=== PATIENT | female | born 1995 | race Caucasian/White ===

== ENCOUNTER 2017-02-15 00:54 | Emergency (ER) | payer OTHER, SELFPAY ==
[2017-02-15] MEDS ORDERED: Ondansetron 4 MG/2 ML SDV IVPUSH ONE (01:24)
[2017-02-15] MEDS ORDERED: Sodium Chloride 0.9% 1,000 ML IV SCH ×2 (01:30→05:00)
[2017-02-15] MEDS ORDERED: Ketorolac 30 MG/ML SDV IVPUSH ONE (02:02)
[2017-02-15] MEDS ORDERED: Iopamidol 755 Mg/ML 100 ML Bottle IV ONE (02:42)
[2017-02-15 04:06] VITALS: BP 129/83
[2017-02-15] MEDS ORDERED: HYDROmorphone 2 MG/ML SDV IVPUSH ONE (04:28)
--- NOTE | 2017-02-15 05:10 | EDM.PDOC ---
ED HPI GI/ABDOMINAL - General Chief Complaint: Abdominal Pain Stated Complaint: CRAMP,VOMIT Time Seen by Provider: 02/15/17 01:00 Source: Reports: Patient History Limitations: Reports: No limitations - History of Present Illness INITIAL COMMENTS - FREE TEXT/NARRATIVE: Patient is a 21 year old woman who has had 1 and 1/2 days of worsening abdominal pain and bloating. At first 1.5 days ago the pain would wax and wane but today it has worsened to the point of 9-10/10 in intensity. She has not had a bowel movement in the last 1.5 days and she also has had a lot of emesis this evening. No fever or chills but the abdominal pain is worsening. 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: Other (see below) (No treatments prior to arrival at ED.) - Related Data Allergies/ADRs: Allergies Allergy/AdvReac Type Severity Reaction Status Date / Time hydrocodone Allergy Tachycardia Verified 02/15/17 02:00 Home Meds: Home Meds NK [No Known Home Meds] 02/15/17 [History] Past Medical History Dermatologic History: Reports: Eczema - Past Surgical History HEENT Surgical History: Reports: Oral surgery Social & Family History - Tobacco Use Smoking Status *Q: Never Smoker - Recreational Drug Use Recreational Drug Use: No ED ROS GENERAL - Review of Systems Review Of Systems: See Below Constitutional: Reports: decreased appetite Respiratory: Reports: No Symptoms GI/Abdominal: Reports: Abdominal pain, Constipation, Distension, Nausea, Vomiting : Reports: no symptoms Musculoskeletal: Reports: no symptoms Skin: Reports: no symptoms Neurological: Reports: No Symptoms Hematologic/Lymphatic: Reports: no symptoms ED EXAM, GI/ABD - Physical Exam Exam: See Below Exam Limited By: No limitations General Appearance: alert, severe distress Eyes: bilateral: normal appearance, EOMI Ears: normal external exam, normal canal, hearing grossly normal, normal TMs Nose: normal inspection, normal mucosa, no blood Throat/Mouth: Normal inspection, Normal lips, Normal teeth, Normal gums, Normal oropharynx, Normal voice, No airway compromise Head: atraumatic, normocephalic Neck: normal inspection, supple, non-tender, full range of motion Respiratory/Chest: no respiratory distress, lungs clear, normal breath sounds, no accessory muscle use, chest non-tender Cardiovascular: normal peripheral pulses, regular rate, rhythm, no edema, no gallop, no JVD, no murmur, no rub GI/Abdominal: normal bowel sounds, tenderness, distention, guarding (Diffusely in the whole abdomen.), rebound (with percussion in RLQ and LLQ), psoas sign ( RLQ) Back Exam: normal inspection, full range of motion, NT Extremities: normal inspection, normal range of motion, non-tender, no pedal edema Neurological: alert, oriented, CN II-XII intact, normal cognition, normal gait, normal reflexes, no motor/sensory deficits Psychiatric: normal affect, normal mood Skin Exam: Warm, Dry, Intact, Normal color, No rash Lymphatic: no adenopathy Course - Vital Signs Text/Narrative:: Patient had an uneventful ED course. She was given IV Toradol along with Zofran IV after initial evaluation and before CT abdomen since she had an allergy to Hydrocodone that caused tachycardia in the past. On consultation with Dr. Holder in general surgery, Dilaudid was given with great relief of her pain down to a 1/[address] Holder suggested transfer to [facility] for GI consultation and evaluation due to her colitis. Last Recorded V/S: Last Vital Signs Temp 36.7 C 02/15/17 03:45 Pulse 89 02/15/17 03:45 Resp 16 02/15/17 03:45 BP 129/83 02/15/17 03:45 Pulse Ox 98 02/15/17 03:45 - Orders/Labs/Meds Orders: Active Orders 24 hr Category Date Time Status Abdomen Pelvis w Cont [CT] Stat Exams 02/15/17 01:23 Taken UA W/MICROSCOPIC [URIN] Stat Lab 02/15/17 01:22 Uncollected Sodium Chloride 0.9% [Normal Saline] 1,000 ml Med 02/15/17 01:30 Active IV ASDIRECTED Sodium Chloride 0.9% [Normal Saline] 1,000 ml Med 02/15/17 05:00 Active IV ASDIRECTED Medication Orders Sodium Chloride (Normal Saline) 1,000 mls @ 999 mls/hr IV ASDIRECTED MARCEL Last Admin: 02/15/17 01:50 Dose: 999 mls/hr Sodium Chloride (Normal Saline) 1,000 mls @ 150 mls/hr IV ASDIRECTED MARCEL Last Admin: 02/15/17 04:53 Dose: 150 mls/hr Labs: Laboratory Tests 02/15/17 02/15/17 02/15/17 Range/Units 01:45 01:45 01:45 WBC 14.1 H (4.5-12.0) X10-3/uL RBC 4.65 (3.23-5.20) x10(6)uL Hgb 12.2 (11.5-15.5) g/dL Hct 36.4 (30.0-51.3) % MCV 78.3 L (80-96) fL MCH 26.1 L (27.7-33.6) pg MCHC 33.4 (32.2-35.4) g/dL RDW 12.9 (11.5-15.5) % Plt Count 419 H (125-369) X10(3)uL MPV 8.1 (7.4-10.4) fL Neut % (Auto) 72.2 (46-82) % Lymph % (Auto) 20.7 (13-37) % [place] % (Auto) 4.4 (4-12) % Eos % (Auto) 2 (1.0-5.0) % Baso % (Auto) 0 (0-2) % Neut # (Auto) 10.2 H (1.6-8.3) # Lymph # (Auto) 2.9 (0.6-5.0) # Marathon # (Auto) 0.6 (0.0-1.3) # Eos # (Auto) 0.3 (0.0-0.8) # Baso # (Auto) 0.1 (0.0-0.2) # Sodium 138 (135-145) mmol/L Potassium 3.4 L (3.5-5.3) mmol/L Chloride 105 (100-110) mmol/L Carbon Dioxide 20 L (23-29) mmol/L BUN 17 (5-20) mg/dL Creatinine 0.8 (0.6-1.3) mg/dL Est Cr Clr Drug Dosing TNP Estimated GFR (MDRD) > 60 (>60) BUN/Creatinine Ratio 21.3 H (9-20) Glucose 140 H (80-116) mg/dL Calcium 9.4 (8.6-10.2) mg/dL Total Bilirubin 0.5 (0.1-1.3) mg/dL AST 20 (5-27) IU/L ALT 15 (14-26) IU/L Alkaline Phosphatase 82 (56-112) IU/L Total Protein 7.8 (6.0-8.0) g/dL Albumin 4.1 (3.5-5.2) g/dL Globulin 3.7 g/dL Albumin/Globulin Ratio 1.1 HCG, Quant < 2 L (2.0 - ) mIU/mL Meds: Medications Generic Name Dose Route Start Last Admin Trade Name Freq PRN Reason Stop Dose Admin Sodium Chloride 1,000 mls @ 999 mls/hr 02/15/17 01:30 02/15/17 01:50 Normal Saline IV 999 mls/hr ASDIRECTED MARCEL Administration Sodium Chloride 1,000 mls @ 150 mls/hr 02/15/17 05:00 02/15/17 04:53 Normal Saline IV 150 mls/hr ASDIRECTED MARCEL Administration Discontinued Medications Generic Name Dose Route Start Last Admin Trade Name Freq PRN Reason Stop Dose Admin Hydromorphone HCl 1 mg 02/15/17 04:28 02/15/17 04:52 Dilaudid IVPUSH 02/15/17 04:29 1 mg ONETIME ONE Administration Iopamidol 83 ml 02/15/17 02:42 02/15/17 02:55 Isovue-370 (76%) IV 02/15/17 02:43 83 ml . DIRECTED ONE Administration Ketorolac Tromethamine 30 mg 02/15/17 02:02 02/15/17 02:05 Toradol IVPUSH 02/15/17 02:03 30 mg ONETIME ONE Administration Ondansetron HCl 4 mg 02/15/17 01:24 02/15/17 01:50 Zofran IVPUSH 02/15/17 01:25 4 mg ONETIME ONE Administration Departure - Departure Time of Disposition: 05:15 Disposition: DC/Tfer to Acute Hospital 02 Condition: good Clinical Impression: Colitis, acute Abdominal pain Qualifiers: Abdominal location: generalized Qualified Code(s): R10.84 - Generalized abdominal pain Instructions: Abdominal Pain, Adult, [id number] Referrals: PCP,None [Primary Care Provider] - Forms: ED Department Discharge - My Orders Last 24 Hours: My Active Orders 02/15/17 01:22 UA W/MICROSCOPIC [URIN] Stat 02/15/17 01:23 Abdomen Pelvis w Cont [CT] Stat 02/15/17 01:30 Sodium Chloride 0.9% [Normal Saline] 1,000 ml IV ASDIRECTED 02/15/17 05:00 Sodium Chloride 0.9% [Normal Saline] 1,000 ml IV ASDIRECTED - Assessment/Plan Last 24 Hours: My Active Orders 02/15/17 01:22 UA W/MICROSCOPIC [URIN] Stat 02/15/17 01:23 Abdomen Pelvis w Cont [CT] Stat 02/15/17 01:30 Sodium Chloride 0.9% [Normal Saline] 1,000 ml IV ASDIRECTED 02/15/17 05:00 Sodium Chloride 0.9% [Normal Saline] 1,000 ml IV ASDIRECTED
== END 2017-02-15 05:15 ==
LOC: FB.ED 00:54
DX: K52.9 Noninfective gastroenteritis and colitis, unspecified (principal); Z88.5 Allergy status to narcotic agent; Z98.890 Other specified postprocedural states
CPT/HCPCS: 36415; 74177; 80053; 84702; 85025; 96361; 96374; 96375; 99285; J1170; J1885; J2405; J7040; Q9967

== ENCOUNTER 2017-10-31 13:39 | Emergency (ER) | payer BC, MEDICAID ==
[2017-10-31] MEDS ORDERED: Lactated Ringers 1,000 ML IV ONE (14:10)
[2017-10-31] MEDS ORDERED: HYDROmorphone 2 MG/ML SDV IVPUSH ONE ×4 (14:11→17:15)
[2017-10-31] MEDS ORDERED: Metoclopramide 10 MG/2 ML SDV IVPUSH ONE (14:11)
--- NOTE | 2017-10-31 14:17 | EDM.PDOC ---
ED [facility] GENERAL MEDICAL PROBLEM - General Chief Complaint: Abdominal Pain Stated Complaint: STOMACH PAIN Time Seen by Provider: 10/31/17 14:05 Source of Information: Reports: Patient, Family, Old Records, RN History Limitations: Reports: No Limitations - History of Present Illness INITIAL COMMENTS - FREE TEXT/NARRATIVE: 22 yo female with a recent colostomy reversal place for colon CA presents with her mother for nausea, vomiting, and abdominal pain. No change in bowels. No fever. Is on Dilaudid for pain chronically. No bleeding. Was to [place] for follow up as recent as last week. Does not feel bloated. Onset: Gradual Onset Date: 10/30/17 Duration: Hour(s):, Constant Location: Reports: Abdomen Quality: Reports: Ache Severity: Moderate Improves with: Reports: None Worsens with: Reports: Other (? time) Context: Reports: Other (abdominal surgeries as in HPI) Associated Symptoms: Reports: Loss of Appetite, Nausea/Vomiting. 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: Reports: None Musculoskeletal History: Reports: None Neurological History: Reports: None Endocrine/Metabolic History: Reports: None Hematologic History: Reports: Blood Transfusion(s) Oncologic (Cancer) History: Reports: Colon Dermatologic History: Reports: Eczema - Past Surgical History HEENT Surgical History: Reports: Oral Surgery Cardiovascular Surgical History: Reports: None Respiratory Surgical History: Reports: Tracheostomy GI Surgical History: Reports: Appendectomy, Colon, Colonoscopy, Other (See Below ) Other GI Surgeries/Procedures: ilieostomy Endocrine Surgical History: Reports: None Musculoskeletal Surgical History: Reports: None Social & Family History - Tobacco Use Smoking Status *Q: Never Smoker - Recreational Drug Use Recreational Drug Use: No ED ROS GENERAL - Review of Systems Review Of Systems: See Below Constitutional: Reports: No Symptoms HEENT: Reports: No Symptoms Respiratory: Reports: No Symptoms Cardiovascular: Reports: No Symptoms Endocrine: Reports: No Symptoms GI/Abdominal: Reports: Abdominal Pain, Decreased Appetite, Nausea, Vomiting. Denies: Black Stool, Bloody Stool, Constipation, Diarrhea, Distension, Flatus, Hematemesis, Hematochezia, Melena : Reports: No Symptoms Musculoskeletal: Reports: No Symptoms Skin: Reports: No Symptoms Neurological: Reports: No Symptoms ED EXAM, GI/ABD - Physical Exam Exam: See Below Exam Limited By: No Limitations General Appearance: Alert, WD/WN, Mild Distress Eyes: Bilateral: Normal Appearance, EOMI Ears: Normal External Exam, Normal Canal, Hearing Grossly Normal, Normal TMs Nose: Normal Inspection, Normal Mucosa, No Blood Throat/Mouth: Normal Inspection, Normal Lips, Normal Oropharynx, Normal Voice, No Airway Compromise Head: Atraumatic, Normocephalic Neck: Normal Inspection, Supple Respiratory/Chest: No Respiratory Distress, Lungs Clear, Normal Breath Sounds, No Accessory Muscle Use Cardiovascular: Regular Rate, Rhythm, No Edema GI/Abdominal Exam: Normal Bowel Sounds, Soft, No Distention, Tender (low abdomen with many surgical scars, old and newer.). No: Rebound Back Exam: Normal Inspection. No: CVA Tenderness (R), Paraspinal Tenderness Extremities: Normal Inspection, Normal Range of Motion, Non-Tender, No Pedal Edema Neurological: Alert, Oriented, CN II-XII Intact, Normal Cognition, No Motor/ Sensory Deficits Psychiatric: Normal Affect, Normal Mood Skin Exam: Warm, Dry, Intact, Normal Color, No Rash Lymphatic: No Adenopathy Course - Vital Signs Text/Narrative:: LR 1000 ml IV, Zofran 4 mg IV, Dilaudid 1 mg IV x 2 + 2 mg IV, 2 mg IV + 1 mg IV Last Recorded V/S: Last Vital Signs Temp 36.6 C 10/31/17 15:45 Pulse 61 10/31/17 13:49 Resp 18 10/31/17 15:45 BP 101/60 10/31/17 15:45 Pulse Ox 99 10/31/17 15:45 - Orders/Labs/Meds Orders: Active Orders 24 hr Category Date Time Status Abdomen Pelvis w Cont [CT] Stat Exams 10/31/17 14:18 Taken Lactated Ringers [Ringers, Lactated] 1,000 ml Med 10/31/17 15:45 Active IV ASDIRECTED Medication Orders Lactated Ringer's (Ringers, Lactated) 1,000 mls @ 200 mls/hr IV ASDIRECTED MARCEL Labs: Laboratory Tests 10/31/17 10/31/17 Range/Units 14:40 14:40 WBC 9.2 (4.5-12.0) X10-3/uL RBC 4.22 (3.23-5.20) x10(6)uL Hgb 11.6 (11.5-15.5) g/dL Hct 35.4 (30.0-51.3) % MCV 83.7 (80-96) fL MCH 27.6 L (27.7-33.6) pg MCHC 32.9 (32.2-35.4) g/dL RDW 12.3 (11.5-15.5) % Plt Count 384 H (125-369) X10(3)uL Sodium 142 (135-145) mmol/L Potassium 4.0 (3.5-5.3) mmol/L Chloride 106 (100-110) mmol/L Carbon Dioxide 26 (21-32) mmol/L BUN 13 (7-18) mg/dL Creatinine 0.7 (0.55-1.02) mg/dL Est Cr Clr Drug Dosing TNP Estimated GFR (MDRD) > 60 (>60) BUN/Creatinine Ratio 18.6 (9-20) Glucose 102 (80-116) mg/dL Calcium 9.5 (8.6-10.2) mg/dL Total Bilirubin 0.4 (0.1-1.3) mg/dL AST 12 (5-25) IU/L ALT 15 (12-36) U/L Alkaline Phosphatase 84 (56-112) IU/L Total Protein 7.0 (6.0-8.0) g/dL Albumin 3.2 L (3.5-5.2) g/dL Globulin 3.8 g/dL Albumin/Globulin Ratio 0.8 Amylase 25 (25-115) U/L Meds: Medications Generic Name Dose Route Start Last Admin Trade Name Freq PRN Reason Stop Dose Admin Lactated Ringer's 1,000 mls @ 200 mls/hr 10/31/17 15:45 Ringers, Lactated IV ASDIRECTED MARCEL Discontinued Medications Generic Name Dose Route Start Last Admin Trade Name Freq PRN Reason Stop Dose Admin Hydromorphone HCl 1 mg 10/31/17 14:11 10/31/17 14:32 Dilaudid IVPUSH 10/31/17 14:12 1 mg ONETIME ONE Administration Hydromorphone HCl 1 mg 10/31/17 14:45 Dilaudid IVPUSH 10/31/17 14:46 ONETIME ONE Hydromorphone HCl 2 mg 10/31/17 15:20 10/31/17 15:29 Dilaudid IVPUSH 10/31/17 15:21 2 mg ONETIME ONE Administration Hydromorphone HCl 2 mg 10/31/17 17:15 Dilaudid IVPUSH 10/31/17 17:16 ONETIME ONE Lactated Ringer's 1,000 mls @ 1,000 mls/hr 10/31/17 14:10 10/31/17 14:32 Ringers, Lactated IV 10/31/17 15:09 1,000 mls/hr BOLUS ONE Administration Iopamidol 75 ml 10/31/17 16:45 10/31/17 16:50 Isovue-370 (76%) IV 10/31/17 16:46 61 ml ONETIME ONE Administration Metoclopramide HCl 10 mg 10/31/17 14:11 Reglan IVPUSH 10/31/17 14:12 ONETIME ONE Ondansetron HCl 4 mg 10/31/17 14:20 10/31/17 14:34 Zofran IVPUSH 10/31/17 14:21 4 mg ONETIME ONE Administration - Radiology Interpretation Free Text/Narrative:: No acute pathology noted. CT Results Date: 10/31/17 CT Results Time: 17:39 Departure - Departure Time of Disposition: 18:00 Disposition: DC/Tfer to Acute Hospital 02 Condition: Fair Clinical Impression: Abdominal pain Qualifiers: Abdominal location: lower abdomen, unspecified Qualified Code(s): R10.30 - Lower abdominal pain, unspecified Nausea and vomiting Qualifiers: Vomiting type: unspecified Vomiting Intractability: non-intractable Qualified Code(s): R11.2 - Nausea with vomiting, unspecified - Discharge Information Referrals: PCP,Not In Area [Primary Care Provider] - Forms: ED Department Discharge - My Orders Last 24 Hours: My Active Orders 10/31/17 14:18 Abdomen Pelvis w Cont [CT] Stat 10/31/17 15:45 Lactated Ringers [Ringers, Lactated] 1,000 ml IV ASDIRECTED - Assessment/Plan Last 24 Hours: My Active Orders 10/31/17 14:18 Abdomen Pelvis w Cont [CT] Stat 10/31/17 15:45 Lactated Ringers [Ringers, Lactated] 1,000 ml IV ASDIRECTED
[2017-10-31] MEDS ORDERED: Ondansetron 4 MG/2 ML SDV IVPUSH ONE (14:20)
[2017-10-31] MEDS ORDERED: Lactated Ringers 1,000 ML IV SCH (15:45)
[2017-10-31] MEDS ORDERED: Iopamidol 755 Mg/ML 75 ML Bottle IV ONE (16:45)
[2017-10-31] MEDS ORDERED: HYDROmorphone 2 MG/ML SDV IVPUSH STA (17:48)
[2017-10-31 18:09] VITALS: BP 114/76
--- NOTE | 2017-11-01 08:39 | CT ---
INDICATION: Abdominal pain, vomiting, history of surgery for colon CA. CT ABDOMEN AND CT PELVIS WITH CONTRAST: Spiral 2.5 mm axial sections were obtained through the abdomen and pelvis with oral and IV contrast (61 mL Isovue 370 at 100 mL/second) with sagittal and coronal reconstructions 10/31/2017 and compared with 02/15/2017. There has been interval colonic surgery and apparent reversal of ileostomy. At this time, no evidence of an obstructive process was identified. Small bowel loops are generous but not grossly enlarged, and no significant air fluid levels were identified to strongly suggest a mechanically obstructive process. This finding should be correlated clinically, however. Gas and stool is noted throughout the colon, including the rectosigmoid and rectum. No definite mass lesions, organomegaly, or free fluid collections were identified in the abdomen or pelvis. Liver, gallbladder, adrenals, kidneys, spleen, and pancreas were unremarkable. Lower lung oliva and pleural space visualized appeared normal. IMPRESSION: Essentially normal postsurgical abdomen. No definite mechanically obstructive process identified. Followup study may be warranted, such as repeat CT of the abdomen in 24 hours, if symptoms are not improved. CT PELVIS: Examination of the pelvis was obtained by CT as noted above. No definite organomegaly, mass lesions, or free fluid collections were identified. Gas and stool is noted in the colon, including the rectum. Report was called to Dr. Naranjo at 1736 hours on 10/31/2017. [facility]
== END 2017-10-31 18:29 ==
LOC: FB.ED 13:39
DX: R10.30 Lower abdominal pain, unspecified (principal); R11.2 Nausea with vomiting, unspecified; Z88.8 Allergy status to other drugs, medicaments and biological substances
CPT/HCPCS: 36415; 74177; 80053; 82150; 85027; 96361; 96374; 96376; 99284; J1170; J2405; J7120; Q9967; 96375

== ENCOUNTER 2017-11-30 10:14 | Emergency (ER) | payer BC, MEDICAID ==
[2017-11-30] MEDS ORDERED: Sodium Chloride 0.9% 1,000 ML IV ONE (10:56)
[2017-11-30] MEDS ORDERED: HYDROmorphone 2 MG/ML SDV IVPUSH ONE ×4 (10:56→16:05)
[2017-11-30] MEDS ORDERED: Ondansetron 4 MG/2 ML SDV IVPUSH ONE ×2 (11:02→15:58)
[2017-11-30] MEDS ORDERED: Ondansetron 4 MG Tab.DIS PO PRN (11:18)
[2017-11-30] MEDS ORDERED: Iopamidol 755 Mg/ML 75 ML Bottle IV ONE (12:46)
[2017-11-30] MEDS ORDERED: Diatrizoate Meglumine/Diatrizoate Sodium 37% 30 ML Bottle PO SCH (13:00)
[2017-11-30] MEDS ORDERED: Sodium Chloride 0.9% 1,000 ML IV SCH (13:30)
[2017-11-30] MEDS ORDERED: Morphine 2 MG/ML Syringe IVPUSH ONE (15:57)
--- NOTE | 2017-11-30 16:00 | CT ---
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 CT ABDOMEN AND PELVIS WITH CONTRAST: Spiral 2.5-mm axial sections were obtained through the abdomen and pelvis with oral and IV contrast (54 mL Isovue- 370 at 1.6 mL per second), with sagittal and coronal reconstructions, 11/30/2017 , and compared with 10/31/2017. Total Exam DLP = 260.20 mGy-cm. The lower lung oliva and pleural spaces visualized revealed no evidence of an active infiltrate or effusion. The heart did not appear enlarged. The liver appeared normal with no intrahepatic ductal dilatation. The common bile duct was normal in caliber. The gallbladder appears to be slightly distended, measuring 97 mm. No definite calculi were demonstrated, however. The gallbladder wall appears somewhat indistinct and slightly prominent. This does raise the question of cholecystitis and should be correlated clinically. Ultrasound may be warranted for further evaluation, depending upon clinical correlation. The adrenal glands appeared normal, the kidneys appeared normal, the spleen and pancreas appeared normal. No definite retroperitoneal mass is seen. An oval low-density abnormality is noted in the right pelvis in the area of the ovary, likely representing a follicular cyst. Ultrasound would be confirmatory as felt to be clinically necessary. The urinary bladder wall appeared to be somewhat thickened, suggesting the possibility of cystitis - correlate clinically. Evidence of colon anastomosis is noted in the area of the rectosigmoid colon. What appears to be the appendix appeared normal, visualized on coronal images # 28, #29, and #30. No definite obstructive process is identified. No definite free air is seen. No additional organomegaly, mass lesions, or free fluid collections were identified in the abdomen or pelvis. IMPRESSION: 1. Somewhat distended gallbladder with slightly thickened wall, raising question of cholecystitis - correlate clinically. 2. Post-surgical rectosigmoid area of the colon. 3. Slight thickening of the urinary bladder wall, which could be on the basis of cystitis and should be correlated clinically. 4. Probable physiologic cyst, 3 cm size, in the area of the right ovary. CT PELVIS: Examination of the pelvis revealed slight thickening of the urinary bladder wall and a probable cystic mass at the right ovary compatible with physiologic cyst. No mass lesions, organomegaly, or free fluid collections were identified in the pelvis. Ultrasound of the pelvis would be confirmatory for urinary bladder wall thickening and possible physiologic ovarian cyst on the right. Report was called to Dr. Prasad at 1437 hours, 11/30/2017. [facility]
[2017-11-30 18:29] VITALS: BP 108/63
[2017-11-30] MEDS ORDERED: Atropine/Diphenoxylate 0.025-2.5 MG Tab PO ONE (18:44)
--- NOTE | 2017-12-02 12:26 | US ---
INDICATION: Abdominal pain. Enlarged gallbladder on CT. RIGHT UPPER QUADRANT/GALLBLADDER ULTRASOUND: Multiple ultrasonic images were obtained 11/30/2017 and revealed the IVC to be phasic. The liver is somewhat heterogeneous and slightly echogenic, raising question of a mild degree of fatty infiltration. The right kidney measured 10.6 x 4 x 4.8 cm and appeared normal. The common bile duct appeared normal at 3.8 mm. The gallbladder measured approximately 8.3 x 3.3 x 2.3 cm, without evidence of wall thickening, calculi, sludge, pericholecystic fluid, or positive ultrasonic Nicholson sign. The aorta was not evaluated. The pancreas appeared normal. IMPRESSION: Normal right upper quadrant/gallbladder except for slightly heterogeneous, slightly echogenic liver, which could be on the basis of a mild degree of fatty infiltration - normal gallbladder ultrasound. [facility]
--- NOTE | 2017-12-02 15:12 | ER ---
DATE SEEN: 11/30/2017 TIME SEEN: The patient was seen at 1040 hours. HISTORY OF PRESENT ILLNESS: This 22-year-old had significant serious health problems, which stem from her genetic abnormality requiring surgical intervention. 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 In February of last year, she had a colon resection with an ileostomy, resulted in sepsis complications. She was intubated 3 times and in intensive care for a month. She had significant ammonia problems and required dialysis for several weeks and finally resolved. She had intubation followed by tracheostomy. She had an ileostomy. This has been reversed. She has done relatively well since that time. She has now come in today with onset of abdominal pain at 0300 hours. It is associated with diarrhea, 10 times a day, and also vomited x5. The pain is worse. She is on a Dilaudid taper, of which she gets 5 mg a day. More recently, it was dropped by 50%. Previous physician saw her, Dr. Toribio, who thought perhaps it was a narcotic problem. Because of her abdominal pain, she had a CT of the abdomen, which was performed on 10/31/2017. She had normal postoperative abdomen without any obstruction. No organomegaly, masses, lesions, or free fluid demonstrated. Gas and stool were noted in the colon, including the rectum. Dr. 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 She is on chronic doses of Dilaudid. She felt bloated. She had stable vital signs, afebrile. No tachycardia. Respirations are normal. Blood pressure 110/60. Automated chemistry was normal, although albumin was slightly low at 3.2. Otherwise, white count was normal. Hemoglobin was 11.6 and platelets were 384,000. She received multiple doses of Dilaudid - up to 5 mg, Reglan and Zofran. DIAGNOSES: 1. Unspecified abdominal discomfort with vomiting and too rapid a narcotic taper associated gastrointestinal pain. 2. Sanchez disease. 3. Status post colon resection with ileostomy. 4. Hepatic insufficiency with elevated ammonia. 5. History of dialysis for #4. 6. Tracheostomy and multiple intubations. 7. Enlarged gallbladder. CURRENT MEDICATIONS: Dilaudid daily 5 mg in the AM. ALLERGIES: Reglan and succinylcholine. Reglan caused her to experience shaking. REVIEW OF SYSTEMS: Denies headache. Denies fevers, chills, or compromise in vision. Denies shortness of breath or cough or chest pain. Abdominal symptoms as noted above. She has had diarrhea with vomiting and 10/10 abdominal discomfort. Last menstrual period-not asked. No frequency, urgency, or dysuria. No muscle aches or joint aches. No edema of the lower extremities or history of DVTs. No history of seizures, no drug withdrawal or headaches. PHYSICAL EXAMINATION: VITAL SIGNS: Blood pressure 120/76, heart rate 55, respirations 18, oxygen saturation 100%, and temperature is 36.7 degrees. 47.6 kg with a 16.9 kg/m2 BMI. GENERAL: She is pleasant and smiles, but she has moderate discomfort, she says it is 10/10. She is somewhat distracted, still 10/10. HEENT: PERRLA intact. Pupils do react. They are slightly dilated and initially come down from a 6 down to a 3. TMs negative. Pharynx without abnormality. No erythema. No cervical adenopathy. NECK: Supple. LUNGS: Clear without rales, rhonchi, or wheezes. HEART: S1, S2. There is no murmur. No irregular rate and rhythm. ABDOMEN: Guarding, moderate. Moderate heel jar. Moderate rebound in the abdomen, generalized. Bowel sounds increased. No distention. Large midline scar, infraumbilical, wide scar and a scar above the umbilicus and to the left of it. EXTREMITIES: Without abnormality. No pedal edema of lower extremities. Deep tendon reflexes normal in upper and lower extremities. PELVIC: Not performed. RECTAL: Not performed. NEUROLOGIC: Cranial nerves 2 through 12 intact. Oriented x3. WORKING DIAGNOSIS: Rule out catastrophic bowel abnormality because she had so much surgery. She had partial colon resection. She had sepsis. She had intubation, had tracheostomy (she has tracheostomy scar in the anterior lower neck). She was in ICU for several months. I wonder if she has extensive adhesions of her abdomen. The other part is could she have drug withdrawal from her narcotic use. Recently, she had a change of her narcotics from 10 mg to 5 mg of Dilaudid a day and was just dropped 3 to 4 days ago. No evidence for pulmonary embolus on clinical examination. No evidence for catastrophic event. I do not think she has sepsis today. CAT scan revealed no obstruction, no thickening of the bowels, mild thickening of the bladder, and has a very large gallbladder of 11 cm long at the most and 2 to 3 cm wide. Etiology is indeterminate (there has been some discussion that she possibly could have a large gallbladder because the gallbladder contractures are inhibited with chronic use of narcotics-I am not sure about this data). Platelet count, mild thrombocytosis 466,000, otherwise normal. White count, see chart, 8200; PMNs 72; lymphocytes 23; monos 4; eosinophils 0. Complete metabolic panel was normal, except for reactive glucose elevation at 117. She does not have pancreatitis. Urinalysis is normal with few bacteria, mucus, moderate squamous epithelial cells. The patient is not . No evidence for low albumin. The degree of the patient's pain was really a quandry to me. Initially, I felt that there was an issue of a critical serious problem because she has so much pain. The discomfort that she experiences parallel to some of the surgeries she has had. Consequently, she was given frequent doses of 2 mg of Dilaudid, total of 10 mg. She had a culture of C. diff before the diarrhea, culture of the stool, ova and parasites, and blood cultures pending. Ultrasound performed, shows large gallbladder but no stones noted. No pericystc fat stranding. There is no suggestion of cholelithiasis. It is possible that she has dysfunctional gallbladder and needs a HIDA scan, that is something that can be ordered and worked out through her GI specialist. She can see a GI specialist in [place] and has plan to go back to [place] in December. She has blood cultures pending. The probability of infection is low. After thinking about this, working with this, and working through her symptoms, it is my thought that perhaps she had too abrupt of tapering of her Dilaudid from 10 mg to 5 mg last 2 days ago. She takes on a daily basis, and she had a 50% tapering, and perhaps it would be better to have 3% to 8% to 10% tapering. She may have a rebound pain response. It is not altogether bad that she had this pain or discomfort, but when she was made to realize this, perhaps she can tough it out and still go at 5 mg. I suggested perhaps she increase it to 1-1/2 dose per day until she [facility], and they can adjust. Until then, she can use that dose. OTHER DIAGNOSES: Status post tracheostomy, status post approximately 3 months in ICU, status post sepsis and partial colon resection with ileostomy and then takedown of ileostomy. 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 She is not on chemotherapy currently. Approximately 6 hours were spent with her, getting studies done, IV fluids, treated with pain medicine, and working through the different possibilities. We even worked on reframing mechanisms to help her avoid using extensive doses of pain medicines. Stool culture, ova and parasites, and blood cultures are pending. /[id number] SERG/LULY MERINO
== END 2017-11-30 18:59 | disposition home or self-care (01) ==
LOC: FB.ED 10:14
DX: R11.11 Vomiting without nausea (principal); Z85.038 Personal history of other malignant neoplasm of large intestine; Z88.8 Allergy status to other drugs, medicaments and biological substances; Z93.0 Tracheostomy status; Z15.09 Genetic susceptibility to other malignant neoplasm
CPT/HCPCS: 36415; 74177; 76705; 80053; 81001; 83605; 85025; 87015; 87040; 87045; 87046; 87177; 87209; 87324; 87804; 87899; 96361; 96374; 96375; 96376; 99284; A9270; J1170; J2405; J7040; Q9967; J7030

== ENCOUNTER 2019-09-02 05:49 | Emergency (ER) | payer BC, MEDICAID, OTHER ==
[2019-09-02] MEDS ORDERED: Ketorolac 60 MG/2 ML SDV IM ONE (06:12)
[2019-09-02] MEDS ORDERED: hydrOXYzine HCl 50 MG/ML SDV IM ONE (06:12)
--- NOTE | 2019-09-02 06:22 | EDM.PDOC ---
<RamonJimmy M - Last Filed: 09/02/19 06:16> ED HPI GENERAL MEDICAL PROBLEM - General Chief Complaint: Abdominal Pain Stated Complaint: STOMACH PAIN Time Seen by Provider: 09/02/19 06:16 Source of Information: Reports: Patient, Family History Limitations: Reports: No Limitations - History of Present Illness INITIAL COMMENTS - FREE TEXT/NARRATIVE: Ms John is a pleasant 24 yo female with pelvic cramps. She had LEEP procedure done at the [place] on ,and since then had dull lower abdominal; pain,but the cramps have increased this morning. She endorses vaginal bleeding, but was informed that it could be result of the procedure. No foul smelling discharge,no fever,no constipation. She further states that the cramps re associated with nausea,that was initially treated with a patch( presumably scopolamine). Dora has an extensive past history that incudes Sanchez Syndrome ,with several surgeries,including an intraabdominal infection,colostomy and subsequent revision. - Related Data Allergies Allergy/AdvReac Type Severity Reaction Status Date / Time droperidol Allergy Anxiety Verified 09/02/19 06:54 hydrocodone Allergy Palpitation Verified 09/02/19 06:48 s metoclopramide [From Reglan] Allergy Anxiety, Verified 09/02/19 06:49 Myalgia succinylcholine Allergy Palpitation Verified 09/02/19 07:00 s Home Meds: Home Meds Acetaminophen [Tylenol Extra Strength] 1,000 mg PO Q6H PRN 09/02/19 [History] Cefuroxime Axetil [Ceftin] 500 mg PO BID #14 tablet 09/02/19 [Rx] Citalopram Hydrobromide [Celexa] 40 mg PO DAILY 09/02/19 [History] Docusate Calcium 240 mg PO DAILY PRN 09/02/19 [History] HYDROmorphone HCl [Dilaudid] 8 mg PO Q8H PRN #12 tablet 09/02/19 [Rx] Ibuprofen 200 mg PO Q6H PRN 09/02/19 [History] traZODone HCl [Trazodone HCl] 50 mg PO BEDTIME PRN 09/02/19 [History] Past Medical History Cardiovascular History: Reports: None Genitourinary History: Reports: None [employer] History: Reports: None Musculoskeletal History: Reports: None Neurological History: Reports: None Endocrine/Metabolic History: Reports: None Hematologic History: Reports: Blood Transfusion(s) Oncologic (Cancer) History: Reports: Colon Dermatologic History: Reports: Eczema - Past Surgical History HEENT Surgical History: Reports: Oral Surgery Cardiovascular Surgical History: Reports: None Respiratory Surgical History: Reports: Tracheostomy GI Surgical History: Reports: Appendectomy, Colon, Colonoscopy, Other (See Below ) Other GI Surgeries/Procedures: ilieostomy Endocrine Surgical History: Reports: None Musculoskeletal Surgical History: Reports: None Social & Family History - Caffeine Use Caffeine Use: Reports: Energy Drinks, Soda ED ROS GENERAL - Review of Systems Review Of Systems: Comprehensive ROS is negative, except as noted in HPI. ED EXAM, RENAL/ - Physical Exam Exam: See Below Exam Limited By: No Limitations General Appearance: Alert, WD/WN Ears: Normal External Exam Respiratory/Chest: No Respiratory Distress GI/Abdominal: Normal Bowel Sounds, Soft, No Distention, Tender. No: Distended, Guarding, Rigid, Rebound, Mass, Hepatomegaly Neurological: Alert Psychiatric: Normal Affect Course - Vital Signs Last Recorded V/S: Last Vital Signs Temp 36.6 C 09/02/19 06:00 Pulse 83 09/02/19 06:00 Resp 18 09/02/19 06:00 BP 138/83 09/02/19 06:00 Pulse Ox 99 09/02/19 06:00 - Orders/Labs/Meds Orders: Active Orders 24 hr Category Date Time Status CULTURE URINE [RM] Stat Lab 09/02/19 07:50 Ordered Cefuroxime [Ceftin] Med 09/02/19 07:54 Once 500 mg PO ONETIME ONE Medication Orders Cefuroxime Axetil (Ceftin) 500 mg PO ONETIME ONE Stop: 09/02/19 07:55 Labs: Laboratory Tests 09/02/19 09/02/19 09/02/19 Range/Units 06:35 06:35 06:35 WBC 9.9 (4.5-12.0) X10-3/uL RBC 4.60 (3.23-5.20) x10(6)uL Hgb 12.9 (11.5-15.5) g/dL Hct 39.4 (30.0-51.3) % MCV 85.6 (80-96) fL MCH 28.1 (27.7-33.6) pg MCHC 32.8 (32.2-35.4) g/dL RDW 13.5 (11.5-15.5) % Plt Count 318 (125-369) X10(3)uL MPV 8.6 (7.4-10.4) fL Neut % (Auto) 63.7 (46-82) % Lymph % (Auto) 29.3 (13-37) % Ogle % (Auto) 4.5 (4-12) % Eos % (Auto) 2 (1.0-5.0) % Baso % (Auto) 1 (0-2) % Neut # (Auto) 6.4 (1.6-8.3) # Lymph # (Auto) 2.9 (0.6-5.0) # Ogle # (Auto) 0.4 (0.0-1.3) # Eos # (Auto) 0.2 (0.0-0.8) # Baso # (Auto) 0.0 (0.0-0.2) # Sodium 142 (135-145) mmol/L Potassium 4.1 (3.5-5.3) mmol/L Chloride 105 (100-110) mmol/L Carbon Dioxide 27 (21-32) mmol/L BUN 22 H (7-18) mg/dL Creatinine 0.8 (0.55-1.02) mg/dL Est Cr Clr Drug Dosing 104.54 mL/min Estimated GFR (MDRD) > 60 (>60) BUN/Creatinine Ratio 27.5 H (9-20) Glucose 92 (80-116) mg/dL Lactic Acid 1.4 (0.4-2.2) mmol/L Calcium 9.4 (8.6-10.2) mg/dL Total Bilirubin 0.2 (0.1-1.3) mg/dL AST 11 D (5-25) IU/L ALT 19 (12-36) U/L Alkaline Phosphatase 86 (56-112) IU/L C-Reactive Protein (0.5-0.9) mg/dL Total Protein 7.1 (6.0-8.0) g/dL Albumin 3.6 (3.5-5.2) g/dL Globulin 3.5 g/dL Albumin/Globulin Ratio 1.0 Urine Color (YELLOW) Urine Appearance (CLEAR) Urine pH (5.0-6.5) Ur Specific [place] (1.010-1.025) Urine Protein (NEGATIVE) mg/dL Urine Glucose (UA) (NORMAL) mg/dL Urine Ketones (NEGATIVE) mg/dL Urine Occult Blood (NEGATIVE) Urine Nitrite (NEGATIVE) Urine Bilirubin (NEGATIVE) Urine Urobilinogen (NEGATIVE) mg/dL Ur Leukocyte Esterase (NEGATIVE) Urine RBC (0-5) Urine WBC (0-5) Ur Squamous Epith Cells (NS,R,O) Urine Bacteria (NS) Urine HCG, Qual (NEGATIVE) 09/02/19 09/02/19 09/02/19 Range/Units 06:35 07:25 07:25 WBC (4.5-12.0) X10-3/uL RBC (3.23-5.20) x10(6)uL Hgb (11.5-15.5) g/dL Hct (30.0-51.3) % MCV (80-96) fL MCH (27.7-33.6) pg MCHC (32.2-35.4) g/dL RDW (11.5-15.5) % Plt Count (125-369) X10(3)uL MPV (7.4-10.4) fL Neut % (Auto) (46-82) % Lymph % (Auto) (13-37) % Ogle % (Auto) (4-12) % Eos % (Auto) (1.0-5.0) % Baso % (Auto) (0-2) % Neut # (Auto) (1.6-8.3) # Lymph # (Auto) (0.6-5.0) # Ogle # (Auto) (0.0-1.3) # Eos # (Auto) (0.0-0.8) # Baso # (Auto) (0.0-0.2) # Sodium (135-145) mmol/L Potassium (3.5-5.3) mmol/L Chloride (100-110) mmol/L Carbon Dioxide (21-32) mmol/L BUN (7-18) mg/dL Creatinine (0.55-1.02) mg/dL Est Cr Clr Drug Dosing mL/min Estimated GFR (MDRD) (>60) BUN/Creatinine Ratio (9-20) Glucose (80-116) mg/dL Lactic Acid (0.4-2.2) mmol/L Calcium (8.6-10.2) mg/dL Total Bilirubin (0.1-1.3) mg/dL AST (5-25) IU/L ALT (12-36) U/L Alkaline Phosphatase (56-112) IU/L C-Reactive Protein 0.2 L (0.5-0.9) mg/dL Total Protein (6.0-8.0) g/dL Albumin (3.5-5.2) g/dL Globulin g/dL Albumin/Globulin Ratio Urine Color Yellow (YELLOW) Urine Appearance Slightly cloudy (CLEAR) Urine pH 5.0 (5.0-6.5) Ur Specific [place] 1.015 (1.010-1.025) Urine Protein Negative (NEGATIVE) mg/dL Urine Glucose (UA) Normal (NORMAL) mg/dL Urine Ketones Negative (NEGATIVE) mg/dL Urine Occult Blood Large H (NEGATIVE) Urine Nitrite Negative (NEGATIVE) Urine Bilirubin Negative (NEGATIVE) Urine Urobilinogen Normal (NEGATIVE) mg/dL Ur Leukocyte Esterase Moderate H (NEGATIVE) Urine RBC 10-20 H (0-5) Urine WBC 5-10 H (0-5) Ur Squamous Epith Cells Few H (NS,R,O) Urine Bacteria Moderate H (NS) Urine HCG, Qual Negative (NEGATIVE) Meds: Medications Generic Name Dose Route Start Last Admin Trade Name Horacioq PRN Reason Stop Dose Admin Cefuroxime Axetil 500 mg 09/02/19 07:54 Ceftin PO 09/02/19 07:55 ONETIME ONE Discontinued Medications Generic Name Dose Route Start Last Admin Trade Name Horacioq PRN Reason Stop Dose Admin Hydromorphone HCl 2 mg 09/02/19 06:37 09/02/19 06:41 Dilaudid IM 09/02/19 06:38 2 mg ONETIME ONE Administration Hydromorphone HCl 1 mg 09/02/19 07:49 Dilaudid IM 09/02/19 07:50 ONETIME ONE Hydroxyzine HCl 50 mg 09/02/19 06:12 09/02/19 06:18 Vistaril IM 09/02/19 06:13 50 mg ONETIME ONE Administration Ketorolac Tromethamine 60 mg 09/02/19 06:12 09/02/19 06:18 Toradol IM 09/02/19 06:13 60 mg ONETIME ONE Administration Departure - Departure Disposition: Home, Self-Care 01 Condition: Good Clinical Impression: Pelvic pain, UTI (urinary tract infection) Abdominal pain Qualifiers: Abdominal location: lower abdomen, unspecified Qualified Code(s): R10.30 - Lower abdominal pain, unspecified - Discharge Information Prescriptions: Cefuroxime Axetil [Ceftin] 500 mg PO BID #14 tablet HYDROmorphone HCl [Dilaudid] 8 mg PO Q8H PRN #12 tablet PRN Reason: Pain Instructions: Pelvic Pain, Female, [id number], Loop Electrosurgical Excision Procedure, Care After, Urinary Tract Infection, Adult, [id number] Referrals: Alycia Tuttle PROCESSING ARCHIVIST [Primary Care Provider] - 2 Days Forms: ED Department Discharge Additional Instructions: Fill the prescriptions for Ceftin and Dilaudid and take as directed. Rest, drink plenty of fluids. Follow up with your primary physician in 2 days. - Problem List & Annotations (1) Pelvic pain SNOMED Code(s): 10306894 Code(s): R10.2 - PELVIC AND PERINEAL PAIN Status: Acute Current Visit: Yes - Problem List Review Problem List Initiated/Reviewed/Updated: Yes - My Orders Last 24 Hours: My Active Orders 09/02/19 07:50 CULTURE URINE [RM] Stat 09/02/19 07:54 Cefuroxime [Ceftin] 500 mg PO ONETIME ONE - Assessment/Plan Last 24 Hours: My Active Orders 09/02/19 07:50 CULTURE URINE [RM] Stat 09/02/19 07:54 Cefuroxime [Ceftin] 500 mg PO ONETIME ONE Plan: I have initiallly given her Toradol and Vistaril,obtain a UA and CBC <Hemal Ramirez - Last Filed: 09/02/19 08:05> Course - Re-Assessments/Exams Free Text/Narrative Re-Assessment/Exam: 09/02/19 07:54 I assumed care from Dr. Navarro at 0700. Labs unremarkable except Urinalysis suggests UTI. Pain controlled with Dilaudid in the ED. Patient states the only medication that has helped her pain in the past is Dilaudid. MPDMP reviewed, there have been no controlled substance prescriptions in the last 12 months. Departure - Departure Time of Disposition: 07:58 - Discharge Information *PRESCRIPTION DRUG MONITORING PROGRAM REVIEWED*: Yes *COPY OF PRESCRIPTION DRUG MONITORING REPORT IN PATIENT MICHAEL: No
[2019-09-02] MEDS ORDERED: HYDROmorphone 2 MG/ML SDV IM ONE ×2 (06:37→07:49)
[2019-09-02] MEDS ORDERED: Cefuroxime 250 MG Tab PO ONE (07:54)
[2019-09-02 08:23] VITALS: BP 129/75; PULSE 78
== END 2019-09-02 08:21 | disposition home or self-care (01) ==
LOC: FB.ED 05:49
DX: N39.0 Urinary tract infection, site not specified (principal); Z88.8 Allergy status to other drugs, medicaments and biological substances
CPT/HCPCS: 36415; 80053; 81001; 81025; 83605; 85025; 86140; 87086; 96372; 99284; A9270; J1170; J1885; J3410

== ENCOUNTER 2019-10-29 02:54 | Emergency (ER) | payer OTHER ==
--- NOTE | 2019-10-29 03:40 | EDM.PDOC ---
ED HPI GENERAL MEDICAL PROBLEM - General Chief Complaint: Abdominal Pain Stated Complaint: stomach pain Time Seen by Provider: 10/29/19 03:15 Source of Information: Reports: Patient History Limitations: Reports: No Limitations - History of Present Illness INITIAL COMMENTS - FREE TEXT/NARRATIVE: pt c/o right sided abd painful cramping radiating to her back and across abd, report nusea and emesis, denies diarrhea / constipation ot fever or chills, or any other associated sx, this started about 5 hrs ago, pt report Hx of colon cancer followed by partial colectomy 2 years ago and since then she will have abd pain on and off everyday but usually last for few minutes and resolves on its own. pt has been seen here repeatedly for similar complaints in the past . Treatments [place]: Reports: Acetaminophen R lower abdomen radiating across abdomen & into lower back Pain Score (Numeric/FACES): 7 - Related Data Allergies Allergy/AdvReac Type Severity Reaction Status Date / Time droperidol Allergy Anxiety Verified 09/20/19 14:22 metoclopramide [From Reglan] Allergy Anxiety, Verified 09/20/19 14:22 Myalgia succinylcholine Allergy Palpitation Verified 09/20/19 14:22 s Home Meds: Home Meds Acetaminophen [Tylenol Extra Strength] 1,000 mg PO Q6H PRN 09/02/19 [History] Docusate Calcium 240 mg PO DAILY PRN 09/02/19 [History] traZODone HCl [Trazodone HCl] 100 mg PO BEDTIME PRN 09/02/19 [History] Past Medical History Cardiovascular History: Reports: None Other Cardiovascular History: History of sepsis, required 3 month hospitalization at [facility]. Respiratory History: Reports: Intubation, Previous Other Respiratory History: History of tracheotomy. 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 Dermatologic History: Reports: Eczema - Past Surgical History HEENT Surgical History: Reports: Oral Surgery Cardiovascular Surgical History: Reports: None Respiratory Surgical History: Reports: Tracheostomy GI Surgical History: Reports: Appendectomy, Colon, Colonoscopy, Other (See Below ) Other GI Surgeries/Procedures: ilieostomy with repair Female Surgical History: Reports: LEEP Endocrine Surgical History: Reports: None Musculoskeletal Surgical History: Reports: None Social & Family History - Family History Family Medical History: Noncontributory - Tobacco Use Smoking Status *Q: Never Smoker - Caffeine Use Caffeine Use: Reports: Soda - Recreational Drug Use Recreational Drug Use: Yes Recreational Drug Type: Reports: Marijuana/Hashish Recreational Drug Use Frequency: Rarely ED ROS GENERAL - Review of Systems Review Of Systems: See Below Constitutional: Reports: Fatigue. Denies: Fever, Chills HEENT: Reports: No Symptoms Respiratory: Reports: No Symptoms Cardiovascular: Reports: No Symptoms GI/Abdominal: Reports: Abdominal Pain, Nausea, Vomiting. Denies: Black Stool, Bloody Stool, Constipation, Diarrhea : Reports: No Symptoms Musculoskeletal: Reports: No Symptoms Skin: Reports: No Symptoms Neurological: Reports: No Symptoms ED EXAM, GENERAL - Physical Exam Exam: See Below Exam Limited By: No Limitations General Appearance: Alert, Mild Distress Throat/Mouth: Normal Inspection Head: Atraumatic, Normocephalic Neck: Normal Inspection, Supple, Non-Tender Respiratory/Chest: No Respiratory Distress, Lungs Clear, Normal Breath Sounds Cardiovascular: Normal Peripheral Pulses, Regular Rate, Rhythm, No Murmur GI/Abdominal: Normal Bowel Sounds, Soft, Other (tender over the right side but no guarding or rebounds. ). No: Guarding, Rebound Extremities: Normal Inspection, Normal Range of Motion, No Pedal Edema Neurological: Alert, Oriented, CN II-XII Intact Skin Exam: Warm Course - Vital Signs Text/Narrative:: unremarkable labs were explained to pt, Xray shows no signs of obstruction , repeat abd exam shows no signs of acute abd . pt is comfortable after fluids / Dilaudid and zofran. pt has recurrent abd pain , possibly related to adhesions from prior abd surgeries and she is stable for discharge with PCP f/u. Last Recorded V/S: Last Vital Signs Temp 36.6 C 10/29/19 02:58 Pulse 113 H 10/29/19 02:58 Resp 18 10/29/19 02:58 BP 116/72 10/29/19 02:58 Pulse Ox 97 10/29/19 02:58 - Orders/Labs/Meds Orders: Active Orders 24 hr Category Date Time Status Abdomen 2V AP Flat Upright [CR] Stat Exams 10/29/19 03:41 Ordered Ondansetron [Zofran] Med 10/29/19 03:41 Active 4 mg IVPUSH Q4H PRN Sodium Chloride 0.9% [Normal Saline] 1,000 ml Med 10/29/19 03:41 Active IV .BOLUS Medication Orders Sodium Chloride (Normal Saline) 1,000 mls @ 999 mls/hr IV .BOLUS ONE Stop: 10/29/19 04:41 Ondansetron HCl (Zofran) 4 mg IVPUSH Q4H PRN PRN Reason: Nausea/Vomiting Labs: Laboratory Tests 10/29/19 10/29/19 10/29/19 Range/Units 03:30 03:30 03:50 WBC 5.8 (4.5-12.0) X10-3/uL RBC 4.59 (3.23-5.20) x10(6)uL Hgb 12.8 (11.5-15.5) g/dL Hct 39.6 (30.0-51.3) % MCV 86.4 (80-96) fL MCH 27.8 (27.7-33.6) pg MCHC 32.2 (32.2-35.4) g/dL RDW 13.5 (11.5-15.5) % Plt Count 245 (125-369) X10(3)uL MPV 8.6 (7.4-10.4) fL Neut % (Auto) 80.5 (46-82) % Lymph % (Auto) 11.6 L (13-37) % [place] % (Auto) 7.5 (4-12) % Eos % (Auto) 0 L (1.0-5.0) % Baso % (Auto) 0 (0-2) % Neut # (Auto) 4.7 (1.6-8.3) # Lymph # (Auto) 0.7 (0.6-5.0) # [place] # (Auto) 0.4 (0.0-1.3) # Eos # (Auto) 0.0 (0.0-0.8) # Baso # (Auto) 0.0 (0.0-0.2) # Sodium (135-145) mmol/L Potassium (3.5-5.3) mmol/L Chloride (100-110) mmol/L Carbon Dioxide (21-32) mmol/L BUN (7-18) mg/dL Creatinine (0.55-1.02) mg/dL Est Cr Clr Drug Dosing mL/min Estimated GFR (MDRD) (>60) BUN/Creatinine Ratio (9-20) Glucose (80-116) mg/dL Calcium (8.6-10.2) mg/dL Total Bilirubin (0.1-1.3) mg/dL AST (5-25) IU/L ALT (12-36) U/L Alkaline Phosphatase (56-112) IU/L Total Protein (6.0-8.0) g/dL Albumin (3.5-5.2) g/dL Globulin g/dL Albumin/Globulin Ratio Amylase (25-115) U/L Lipase (73-393) U/L Urine Color Yellow (YELLOW) Urine Appearance Slightly cloudy (CLEAR) Urine pH 6.5 (5.0-6.5) Ur Specific [place] 1.015 (1.010-1.025) Urine Protein 30 H (NEGATIVE) mg/dL Urine Glucose (UA) Normal (NORMAL) mg/dL Urine Ketones 15 H (NEGATIVE) mg/dL Urine Occult Blood Negative (NEGATIVE) Urine Nitrite Negative (NEGATIVE) Urine Bilirubin Small H (NEGATIVE) Urine Urobilinogen 1 H (NEGATIVE) mg/dL Ur Leukocyte Esterase Negative (NEGATIVE) Urine RBC 0-5 (0-5) Urine WBC 0-5 (0-5) Ur Squamous Epith Cells Moderate H (NS,R,O) Urine Bacteria Moderate H (NS) Fine Granular Casts Occasional H (NS) Urine Mucus Many H (NS) Urine HCG, Qual Negative (NEGATIVE) 10/29/19 10/29/19 Range/Units 03:50 03:50 WBC (4.5-12.0) X10-3/uL RBC (3.23-5.20) x10(6)uL Hgb (11.5-15.5) g/dL Hct (30.0-51.3) % MCV (80-96) fL MCH (27.7-33.6) pg MCHC (32.2-35.4) g/dL RDW (11.5-15.5) % Plt Count (125-369) X10(3)uL MPV (7.4-10.4) fL Neut % (Auto) (46-82) % Lymph % (Auto) (13-37) % [place] % (Auto) (4-12) % Eos % (Auto) (1.0-5.0) % Baso % (Auto) (0-2) % Neut # (Auto) (1.6-8.3) # Lymph # (Auto) (0.6-5.0) # [place] # (Auto) (0.0-1.3) # Eos # (Auto) (0.0-0.8) # Baso # (Auto) (0.0-0.2) # Sodium 144 (135-145) mmol/L Potassium 3.6 (3.5-5.3) mmol/L Chloride 107 (100-110) mmol/L Carbon Dioxide 24 (21-32) mmol/L BUN 16 (7-18) mg/dL Creatinine 0.7 (0.55-1.02) mg/dL Est Cr Clr Drug Dosing 115.01 mL/min Estimated GFR (MDRD) > 60 (>60) BUN/Creatinine Ratio 22.9 H (9-20) Glucose 105 (80-116) mg/dL Calcium 8.6 (8.6-10.2) mg/dL Total Bilirubin 0.6 (0.1-1.3) mg/dL AST 15 D (5-25) IU/L ALT 16 D (12-36) U/L Alkaline Phosphatase 67 (56-112) IU/L Total Protein 7.1 (6.0-8.0) g/dL Albumin 3.8 (3.5-5.2) g/dL Globulin 3.3 g/dL Albumin/Globulin Ratio 1.2 Amylase 25 (25-115) U/L Lipase 65 L (73-393) U/L Urine Color (YELLOW) Urine Appearance (CLEAR) Urine pH (5.0-6.5) Ur Specific [place] (1.010-1.025) Urine Protein (NEGATIVE) mg/dL Urine Glucose (UA) (NORMAL) mg/dL Urine Ketones (NEGATIVE) mg/dL Urine Occult Blood (NEGATIVE) Urine Nitrite (NEGATIVE) Urine Bilirubin (NEGATIVE) Urine Urobilinogen (NEGATIVE) mg/dL Ur Leukocyte Esterase (NEGATIVE) Urine RBC (0-5) Urine WBC (0-5) Ur Squamous Epith Cells (NS,R,O) Urine Bacteria (NS) Fine Granular Casts (NS) Urine Mucus (NS) Urine HCG, Qual (NEGATIVE) Meds: Medications Generic Name Dose Route Start Last Admin Trade Name Freq PRN Reason Stop Dose Admin Sodium Chloride 1,000 mls @ 999 mls/hr 10/29/19 03:41 Normal Saline IV 10/29/19 04:41 .BOLUS ONE Ondansetron HCl 4 mg 10/29/19 03:41 Zofran IVPUSH Q4H PRN Nausea/Vomiting Discontinued Medications Generic Name Dose Route Start Last Admin Trade Name Freq PRN Reason Stop Dose Admin Hydromorphone HCl 1 mg 10/29/19 03:41 Dilaudid IVPUSH 10/29/19 03:42 ONETIME ONE Departure - Departure Time of Disposition: 05:07 Disposition: Home, Self-Care 01 Clinical Impression: Abdominal pain Qualifiers: Abdominal location: lower abdomen, unspecified Qualified Code(s): R10.30 - Lower abdominal pain, unspecified - Discharge Information Referrals: PCP,None [Primary Care Provider] - Forms: ED Department Discharge Sepsis Event Note - Evaluation Sepsis Screening Result: No Definite Risk - Focused Exam Vital Signs: Vital Signs Temp Pulse Resp BP Pulse Ox 10/29/19 02:58 36.6 C 113 H 18 116/72 97 Date Exam was Performed: 10/29/19 Time Exam was Performed: 04:33 - My Orders Last 24 Hours: My Active Orders 10/29/19 03:41 Abdomen 2V AP Flat Upright [CR] Stat Ondansetron [Zofran] 4 mg IVPUSH Q4H PRN Sodium Chloride 0.9% [Normal Saline] 1,000 ml IV .BOLUS - Assessment/Plan Last 24 Hours: My Active Orders 10/29/19 03:41 Abdomen 2V AP Flat Upright [CR] Stat Ondansetron [Zofran] 4 mg IVPUSH Q4H PRN Sodium Chloride 0.9% [Normal Saline] 1,000 ml IV .BOLUS
[2019-10-29] MEDS ORDERED: HYDROmorphone 2 MG/ML SDV IVPUSH ONE (03:41)
[2019-10-29] MEDS ORDERED: Ondansetron 4 MG/2 ML SDV IVPUSH PRN (03:41)
[2019-10-29] MEDS ORDERED: Sodium Chloride 0.9% 1,000 ML IV ONE (03:41)
[2019-10-29 05:41] VITALS: BP 127/80; PULSE 88
--- NOTE | 2019-10-29 11:09 | CR ---
INDICATION: Right-sided abdominal pain umbilical area and right lower quadrant. History of colon CA 3 years prior. Tumor distal colon with colon resection. ABDOMEN, 2 VIEWS: Four images of the abdomen in supine and upright projections revealed minimal air-fluid levels in the ascending colon, transverse colon proximally and distal small bowel loops. Gas is noted throughout the colon, including in the rectosigmoid area. Except for those air-fluid levels, the pattern of gas and feces is nonspecific without evidence of free air or definite mechanically obstructive process of an acute severe nature. A partially obstructive process or gastroenteritis, or a process such as localized paralytic ileus due to appendicitis or cholecystitis, cannot be excluded. No definite mass lesions or pathologic calcifications were identified. IMPRESSION: Air-fluid levels in the right flank raise the question of a process such as a localized paralytic ileus, although gastroenteritis, fluid intake, or partial or early obstructive process cannot be entirely excluded. A mechanical obstructive process is felt to be much less likely than a paralytic ileus due to an inflammatory process. CT examination may be of further diagnostic benefit, depending upon clinical course. Pelvic ultrasound, with the location of this pain, may also be helpful. MTDD
== END 2019-10-29 05:30 | disposition home or self-care (01) ==
LOC: FB.ED 02:54
DX: R10.31 Right lower quadrant pain (principal); F41.9 Anxiety disorder, unspecified; F32.9 Major depressive disorder, single episode, unspecified; Z88.8 Allergy status to other drugs, medicaments and biological substances
CPT/HCPCS: 36415; 74019; 80053; 81001; 81025; 82150; 83690; 85025; 96361; 96374; 96375; 99284; J1170; J2405; J7030

== ENCOUNTER 2021-03-21 06:14 | Emergency (ER) | payer BC, OTHER ==
[2021-03-21] MEDS ORDERED: Ketorolac 30 MG/ML SDV IVPUSH ONE (06:43)
--- NOTE | 2021-03-21 07:54 | EDM.PDOC ---
ED HPI GENERAL MEDICAL PROBLEM - General Chief Complaint: Abdominal Pain Stated Complaint: ABDOMINAL PAIN Time Seen by Provider: 03/21/21 06:25 Source of Information: Reports: Patient History Limitations: Reports: No Limitations - History of Present Illness INITIAL COMMENTS - FREE TEXT/NARRATIVE: c/o RLQ pain pt awoke with 8/10 pain in her RLQ without radiation, came to ED 1.5h later when it did not get better, took ibuprofen 200 mg 2 tabs at home has a known 5 cm R ovarian cyst from u/s in [place] several months ago, was in [facility] for a routine visit yesterday and a transvag and transabd u/s of pelvis to monitor cyst, had no pain yesterday, [facility] contacted and u/s 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 c/w u/s on 02/25/20 h/o Sanchez syndrome, gets colonoscopies at [facility] q6m had colon CA with colon resection and secondary sepsis and wound vac and 4m hospitalization has had multiple drains in abd and large midline scar, has had appendix removed during prior abd surgeries 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[place], not scheduled to work this weekend lives with mother and dog, has sig other is on day 5 of usual 8 day menses, has Nexplanon implant, endometrium is 3 mm on u/s yesterday u/s from February from 03/20/21 showed 4.3 cm simple R ovarian cyst with 3 mm endometrial stripe - Related Data Allergies Allergy/AdvReac Type Severity Reaction Status Date / Time droperidol Allergy Anxiety Verified 09/20/19 14:22 metoclopramide [From Reglan] Allergy Anxiety, Verified 09/20/19 14:22 Myalgia succinylcholine Allergy Palpitation Verified 09/20/19 14:22 s Home Meds: Home Meds Acetaminophen [Tylenol Extra Strength] 1,000 mg PO Q6H PRN 09/02/19 [History] Docusate Calcium 240 mg PO DAILY PRN 09/02/19 [History] traZODone HCl [Trazodone HCl] 100 mg PO BEDTIME PRN 09/02/19 [History] traMADol [Ultram] 50 mg PO Q6H PRN #8 tab 03/21/21 [Rx] Past Medical History Cardiovascular History: Reports: None Other Cardiovascular History: History of sepsis, required [address]pi tal[facility] at [facility]. Respiratory History: Reports: Intubation, Previous Other Respiratory History: History of tracheotomy. 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 Dermatologic History: Reports: Eczema - Past Surgical History HEENT Surgical History: Reports: Oral Surgery Cardiovascular Surgical History: Reports: None Respiratory Surgical History: Reports: Tracheostomy GI Surgical History: Reports: Appendectomy, Colon, Colonoscopy, Other (See Below) Other GI Surgeries/Procedures: ilieostomy with repair Female Surgical History: Reports: LEEP Endocrine Surgical History: Reports: None Musculoskeletal Surgical History: Reports: None Social & Family History - Family History Family Medical History: No Pertinent Family History - Tobacco Use Tobacco Use Status *Q: Never Tobacco User Second Hand Smoke Exposure: No - Caffeine Use Caffeine Use: Reports: Soda - Alcohol Use Days Per Week of Alcohol Use: 0 - Recreational Drug Use Recreational Drug Use: No ED ROS GENERAL - Review of Systems Review Of Systems: See Below Constitutional: Reports: No Symptoms HEENT: Reports: No Symptoms Respiratory: Reports: No Symptoms Cardiovascular: Reports: No Symptoms Endocrine: Reports: No Symptoms GI/Abdominal: Reports: Abdominal Pain, Nausea. Denies: Vomiting : Reports: No Symptoms. Denies: Dysuria Musculoskeletal: Reports: No Symptoms Skin: Reports: No Symptoms Neurological: Reports: No Symptoms Psychiatric: Reports: No Symptoms Hematologic/Lymphatic: Reports: No Symptoms Immunologic: Reports: No Symptoms ED EXAM, GI/ABD - Physical Exam Exam: See Below Exam Limited By: No Limitations General Appearance: Alert, WD/WN, Other (walks without difficulty, pleasant) Respiratory/Chest: No Respiratory Distress, Lungs Clear, Normal Breath Sounds, Chest Non-Tender Cardiovascular: Regular Rate, Rhythm, No Edema, No Murmur GI/Abdominal Exam: Normal Bowel Sounds, Soft, No Organomegaly, No Distention, Other (1+ tender over R ovary to R of midline, nontender at L flank, 2-3 cm wide midline scar between umbilicus and PS, no mass, no guard/rebound) Back Exam: Normal Inspection, Full Range of Motion. No: CVA Tenderness (R), CVA Tenderness (L), Muscle Spasm Extremities: Normal Inspection, Normal Range of Motion, Non-Tender, No Pedal Edema Neurological: Alert, Oriented, CN II-XII Intact, Normal Cognition, Normal Gait, No Motor/Sensory Deficits Psychiatric: Normal Affect, Normal Mood Skin Exam: Warm, Dry, Intact, Normal Color, No Rash Lymphatic: No Adenopathy Course - Vital Signs Last Recorded V/S: Last Vital Signs Temp 36.8 C 03/21/21 06:17 Pulse 88 03/21/21 06:17 Resp 18 03/21/21 06:17 BP 137/83 03/21/21 06:17 Pulse Ox 100 03/21/21 06:17 - Orders/Labs/Meds Orders: Active Orders 24 hr Category Date Time Status Abdomen Pelvis w Cont [CT] Stat Exams 03/21/21 06:44 Taken Morphine Med 03/21/21 09:16 Once 2 mg IVPUSH ONETIME ONE Labs: Laboratory Tests 03/21/21 03/21/21 03/21/21 Range/Units 06:57 07:04 07:04 WBC 7.6 (3.0-10.3) x10-3/uL RBC 4.69 (3.60-5.20) x10(6)uL Hgb 14.2 (11.4-15.5) g/dL Hct 42.5 (34.2-48.2) % MCV 90.6 (76.7-100.5) fL MCH 30.3 (23.9-33.9) pg MCHC 33.4 (31.9-34.8) g/dL RDW 13.2 (12.3-16.5) % Plt Count 314 (151-488) x10(3)uL MPV 8.7 (7.1-12.4) fL Neut % (Auto) 65.8 (30.8-76.2) % Lymph % (Auto) 23.8 (18.4-52.1) % [place] % (Auto) 7.6 (4.4-15.7) % Eos % (Auto) 2.4 (0.6-8.1) % Baso % (Auto) 0.4 (0.2-1.5) % Neut # (Auto) 5.0 (1.5-6.3) x10-3/uL Lymph # (Auto) 1.8 (1.0-4.4) x10-3/uL [place] # (Auto) 0.6 (0.3-1.0) x10-3/uL Eos # (Auto) 0.2 (0.0-0.8) x10-3/uL Baso # (Auto) 0.0 (0.0-0.1) x10-3/uL C-Reactive Protein 0.4 L (0.5-0.9) mg/dL Urine Color Yellow (YELLOW) Urine Appearance Cloudy (CLEAR) Urine pH 5.0 (5.0-6.5) Ur Specific [place] 1.025 (1.010-1.025) Urine Protein Negative (NEGATIVE) mg/dL Urine Glucose (UA) Normal (NORMAL) mg/dL Urine Ketones 15 H (NEGATIVE) mg/dL Urine Occult Blood Large H (NEGATIVE) Urine Nitrite Negative (NEGATIVE) Urine Bilirubin Small H (NEGATIVE) Urine Urobilinogen 1 H (NEGATIVE) mg/dL Ur Leukocyte Esterase Small H (NEGATIVE) Urine RBC 5-10 H (0-5) Urine WBC 5-10 H (0-5) Ur Squamous Epith Cells Moderate H (NS,R,O) Urine Bacteria Few H (NS) Meds: Medications Discontinued Medications Generic Name Dose Route Start Last Admin Trade Name Freq PRN Reason Stop Dose Admin Iopamidol 75 ml 03/21/21 07:58 03/21/21 08:09 Iopamidol 755 Mg/Ml 75 Ml Bottle IV 03/21/21 07:59 75 ml ONETIME ONE Administration Ketorolac Tromethamine 15 mg 03/21/21 06:43 03/21/21 07:00 Ketorolac 30 Mg/Ml Sdv IVPUSH 03/21/21 06:44 15 mg ONETIME ONE Administration Ondansetron HCl 4 mg 03/21/21 09:09 Ondansetron 4 Mg/2 Ml Sdv IVPUSH 03/21/21 09:10 ONETIME ONE - Re-Assessments/Exams Free Text/Narrative Re-Assessment/Exam: 03/21/21 09:21 CT abd/pelvis with IV contrast is neg for acute changes, R ovarian cyst 3.7 cm without thickening or evidence of torsion labs neg except for ketone 15 mg/dl no evidence of infection pain may be from cyst, may even be from peritoneal irritation from old scarring pain dec'd from 8/10 to 6/10 after Toradol 15 mg IV, did increase to 7/10 at time of d/c with slight N was given Zofran 4 mg IV and MS 2 mg IV prior to d/c Departure - Departure Time of Disposition: 09:17 Disposition: Home, Self-Care 01 Condition: Good Clinical Impression: Right lower quadrant abdominal pain, Ovarian cyst - Discharge Information *PRESCRIPTION DRUG MONITORING PROGRAM REVIEWED*: Not Applicable *COPY OF PRESCRIPTION DRUG MONITORING REPORT IN PATIENT MICHAEL: Not Applicable Prescriptions: traMADol [Ultram] 50 mg PO Q6H PRN #8 tab PRN Reason: Pain Instructions: Ovarian Cyst Referrals: PCP,None [Primary Care Provider] - Forms: ED Department Discharge Additional Instructions: For pain, take ibuprofen 200 mg 3 tabs and acetaminophen 500 mg 2 tabs 4 times a day for 2 days. For pain, take tramadol 50 mg 1 tab every 6 hours as needed. No alcohol. For pain, use moist heat for 10 minutes several times a day as needed. Increase fluids. Get adequate rest. Return to Emergency Department if you are having increased pain or additional symptoms. See your doctor in 2 days if you are not pain free and back to normal. Sepsis Event Note (ED) - Evaluation Sepsis Screening Result: No Definite Risk - Focused Exam Vital Signs: Vital Signs Temp Pulse Resp BP Pulse Ox 03/21/21 06:17 36.8 C 88 18 137/83 100 - My Orders Last 24 Hours: My Active Orders 03/21/21 06:44 Abdomen Pelvis w Cont [CT] Stat 03/21/21 09:16 Morphine 2 mg IVPUSH ONETIME ONE - Assessment/Plan Last 24 Hours: My Active Orders 03/21/21 06:44 Abdomen Pelvis w Cont [CT] Stat 03/21/21 09:16 Morphine 2 mg IVPUSH ONETIME ONE
[2021-03-21] MEDS ORDERED: Iopamidol 755 Mg/ML 75 ML Bottle IV ONE (07:58)
[2021-03-21] MEDS ORDERED: Ondansetron 4 MG/2 ML SDV IVPUSH ONE (09:09)
[2021-03-21] MEDS ORDERED: Morphine 2 MG/ML SYRINGE IVPUSH ONE (09:16)
[2021-03-21 10:20] VITALS: BP 118/78; PULSE 74
== END 2021-03-21 09:51 | disposition home or self-care (01) ==
LOC: FB.ED 06:14
DX: N83.201 Unspecified ovarian cyst, right side (principal); Z88.8 Allergy status to other drugs, medicaments and biological substances; Z88.4 Allergy status to anesthetic agent
CPT/HCPCS: 36415; 74177; 81001; 85025; 86140; 96374; 96375; 99284; J1885; J2270; J2405; Q9967

== ENCOUNTER 2022-09-06 08:09 | Emergency (ER) | payer OTHER ==
[2022-09-06] MEDS ORDERED: Sodium Chloride 0.9% 10 ML Syringe FLUSH PRN (08:53)
[2022-09-06] MEDS ORDERED: Morphine 4 MG/ML VIAL IVPUSH STA (08:56)
[2022-09-06] MEDS ORDERED: Ondansetron 4 MG/2 ML SDV IVPUSH STA (08:56)
[2022-09-06] MEDS ORDERED: Sodium Chloride 0.9% 1,000 ML IV SCH (09:00)
[2022-09-06] MEDS ORDERED: Iopamidol 755 Mg/ML 75 ML Bottle IV ONE (09:29)
[2022-09-06 09:38] LABS: ESTIMATED GFR 89 mL/min (>60)
[2022-09-06 10:55] VITALS: BP 119/69; PULSE 65
== END 2022-09-06 10:45 | disposition home or self-care (01) ==
LOC: FB.ED 08:09
DX: N39.0 Urinary tract infection, site not specified (principal); Z15.09 Genetic susceptibility to other malignant neoplasm; Z88.8 Allergy status to other drugs, medicaments and biological substances; Z79.899 Other long term (current) drug therapy; Z90.49 Acquired absence of other specified parts of digestive tract
CPT/HCPCS: 36415; 74177; 80053; 81001; 82150; 83690; 85025; 87086; 96361; 96374; 96375; 99284; J2270; J2405; J3490; J7030; Q9967